=== PATIENT | male | born 1950 | race Caucasian/White ===

== ENCOUNTER 2017-08-28 11:45 | Inpatient (IN) | payer OTHER ==
[~2017-08-28] VITALS: Ht 185.4 cm; Wt 131.9 kg
[~2017-08-28 11:45] MED LIST: FLEXERIL10 MG PO; MEDROL DOSEPAK4 MG PO; MOBIC7.5 MG PO; NORCO 5/3251 TABLET PO; VALIUM5 MG PO
[2017-08-28 12:55] LABS: HEMATOCRIT 38.4 % (38.0-50.0); HEMOGLOBIN 13.5 G/DL (12.5-16.6); MCH 31.5 PG (29.0-34.0); MCHC 35.2 G/DL (30.0-36.0); MCV 89.5 FL (86-99); PLATELET COUNT 109 K/uL (156-360); RBC DIS.WIDTH-CV 13.7 % (11.8-14.6); RBC DIS.WIDTH-SD 45.2 % (39-53); RED BLOOD COUNT 4.29 M/uL (4.00-5.50); WHITE BLOOD COUNT 9.5 K/uL (4.1-10.2)
[2017-08-28 13:01] LABS: CHLORIDE 96 mEq/L (99-109); SODIUM 130 mEq/L (136-147)
[2017-08-28 13:02] LABS: GLUCOSE 282 mg/dL (70-99)
[2017-08-28 13:06] LABS: CREATININE 1.7 mg/dL (0.6-1.3); GFR ESTIMATE (CALCULATED) 43 mL/min/ (58.99-99999)
[2017-08-28 13:07] LABS: UREA NITROGEN (BUN) 34 mg/dL (9-23)
[2017-08-28 13:12] LABS: TROP-I INTERPRETATION NEGATIVE; TROPONIN-I < 0.01 ng/mL (0.0-0.30)
[2017-08-28 13:28] LABS: CARBON DIOXIDE (BICARBONATE) 18.9 MEQ/L (20-31)
[2017-08-28 13:31] LABS: ABS NEUTROPHIL COUNT 8.1; BAND NEUTROPHILS 29.6 % (0-8.0); EOSINOPHIL ABS CT 0; METAMYELOCYTES 5.2 %; MONOCYTES 2.6 % (0-9.0); PLAT.SUFFICIENCY DECREASED; SEG.NEUTROPHILS 55.6 % (46.0-76.0)
[2017-08-28 16:00] VITALS: BP 118/63
[2017-08-28 17:46] LABS: APPEARANCE SL.HAZY ((CLEAR)); BILIRUBIN NEGATIVE; BLOOD NEGATIVE; COLOR AMBER ((YELLOW)); GLUCOSE (STRIP) NEGATIVE; KETONES NEGATIVE; LEUKOCYTES NEGATIVE; NITRITE NEGATIVE; PROTEIN (STRIP) 30; SPECIFIC GRAVITY 1.018 (1.000-1.030); UROBILINOGEN 0.2 MG/DL (0.2-1.0)
[2017-08-28 17:55] LABS: BACTERIA RARE /HPF; EPITHELIAL CELLS RARE /HPF; HYALINE CASTS 20-30 /LPF; MUCUS TRACE /LPF; RED BLOOD CELLS 0-5 /HPF (0-5); UCUL ADDED? NO; WHITE BLOOD CELLS 0-5 /HPF (0-5)
[2017-08-28 20:02] VITALS: BP 123/68
[2017-08-28 22:03] LABS: TROP-I INTERPRETATION NEGATIVE; TROPONIN-I 0.01 ng/mL (0.0-0.30)
[2017-08-28 23:52] VITALS: BP 05/58; BP 105/58
[2017-08-29 04:47] VITALS: BP 123/61
[2017-08-29 06:18] LABS: ALBUMIN 2.8 G/DL (3.2-4.8); ALKALINE PHOSPHATASE 38 IU/L (3-129); ALT (GPT) 27 IU/L (3-49); AST (GOT) 22 IU/L (2-34); CHLORIDE 104 MEQ/L (99-109); DIRECT BILIRUBIN 0.8 mg/dL (0.0-0.3); GLUCOSE 156 mg/dL (70-99); POTASSIUM 4.1 MEQ/L (3.7-5.4); SODIUM 134 MEQ/L (136-147); TOTAL PROTEIN 5.9 G/DL (6.4-8.3); UREA NITROGEN (BUN) 34 mg/dL (9-23)
[2017-08-29 06:21] LABS: CREATININE 1.2 MG/DL (0.6-1.3); GFR ESTIMATE (CALCULATED) > 59 mL/min/ (58.99-99999)
[2017-08-29 06:30] LABS: ATYPICAL LYMPHOCYTE 1.7 %; BAND NEUTROPHILS 17.5 % (0-8.0); BASOPHILS 0.9 %; BURR CELLS 1+; EOSINOPHIL ABS CT 0; HEMATOCRIT 33.6 % (38.0-50.0); LYMPHOCYTES 7.9 % (15.0-45.0); MCH 29.9 PG (29.0-34.0); MCHC 32.4 G/DL (30.0-36.0); MCV 92.3 FL (86-99); METAMYELOCYTES 1.8 %; NUCLEATED RBC'S 0.9; PLAT.SUFFICIENCY DECREASED; POIKILOCYTOSIS 1+; RBC DIS.WIDTH-CV 13.8 % (11.8-14.6); RBC DIS.WIDTH-SD 47.5 % (39-53); RED BLOOD COUNT 3.64 M/uL (4.00-5.50); SEG.NEUTROPHILS 70.2 % (46.0-76.0); SMUDGE CELLS 5.3; WHITE BLOOD COUNT 3.4 K/uL (4.1-10.2)
[2017-08-29 06:44] LABS: HEMOGLOBIN 10.9 G/DL (12.5-16.6); PLATELET COUNT 65 K/uL (156-360)
[2017-08-29 08:00] VITALS: BP 136/68
[2017-08-29 11:11] VITALS: BP 131/65
[2017-08-29 16:00] VITALS: BP 113/56
[2017-08-29 19:26] VITALS: BP 150/74
[2017-08-29 23:39] VITALS: BP 125/66
[2017-08-30 03:34] VITALS: BP 131/72
[2017-08-30 06:04] LABS: INTER. NORMALIZED RATIO 1.4
[2017-08-30 06:10] LABS: HEMATOCRIT 33.6 % (38.0-50.0); HEMOGLOBIN 10.9 G/DL (12.5-16.6); MCH 29.8 PG (29.0-34.0); MCHC 32.4 G/DL (30.0-36.0); MCV 91.8 FL (86-99); PLATELET COUNT 83 K/uL (156-360); RBC DIS.WIDTH-CV 13.9 % (11.8-14.6); RBC DIS.WIDTH-SD 47.8 % (39-53); RED BLOOD COUNT 3.66 M/uL (4.00-5.50); WHITE BLOOD COUNT 3.7 K/uL (4.1-10.2)
[2017-08-30 06:34] LABS: ALBUMIN 2.5 G/DL (3.2-4.8); ALKALINE PHOSPHATASE 40 IU/L (3-129); ALT (GPT) 22 IU/L (3-49); AST (GOT) 21 IU/L (2-34); CHLORIDE 105 MEQ/L (99-109); CREATININE 0.9 MG/DL (0.6-1.3); GFR ESTIMATE (CALCULATED) > 59 mL/min/ (58.99-99999); GLUCOSE 119 mg/dL (70-99); POTASSIUM 3.4 MEQ/L (3.7-5.4); SODIUM 136 MEQ/L (136-147); TOTAL PROTEIN 5.6 G/DL (6.4-8.3); UREA NITROGEN (BUN) 18 mg/dL (9-23)
[2017-08-30 07:33] VITALS: BP 142/82
[2017-08-30 11:30] VITALS: BP 126/72
[2017-08-30 15:01] VITALS: BP 134/73
[2017-08-30 19:53] VITALS: BP 132/72
[2017-08-31 00:21] VITALS: BP 149/71
[2017-08-31 04:30] VITALS: BP 162/77
[2017-08-31 04:44] LABS: HEMATOCRIT 34.2 % (38.0-50.0); HEMOGLOBIN 11.2 G/DL (12.5-16.6); MCHC 32.7 G/DL (30.0-36.0); MCV 91.7 FL (86-99); PLATELET COUNT 99 K/uL (156-360); RBC DIS.WIDTH-SD 47.2 % (39-53); RED BLOOD COUNT 3.73 M/uL (4.00-5.50); WHITE BLOOD COUNT 3.8 K/uL (4.1-10.2)
[2017-08-31 05:09] LABS: ABS NEUTROPHIL COUNT 2.5; ATYPICAL LYMPHOCYTE 0.9 %; BAND NEUTROPHILS 0.9 % (0-8.0); BURR CELLS 1+; EOSINOPHIL ABS CT 0; EOSINOPHILS 0.9 % (0-5.0); LYMPHOCYTES 21.9 % (15.0-45.0); PLAT.SUFFICIENCY ADEQUATE
[2017-08-31 05:10] LABS: MONOCYTES 11.4 % (0-9.0)
[2017-08-31 05:31] LABS: ALBUMIN 2.5 G/DL (3.2-4.8); ALKALINE PHOSPHATASE 43 IU/L (3-129); ALT (GPT) 20 IU/L (3-49); AST (GOT) 21 IU/L (2-34); CHLORIDE 105 MEQ/L (99-109); CREATININE 0.7 MG/DL (0.6-1.3); GFR ESTIMATE (CALCULATED) > 59 mL/min/ (58.99-99999); GLUCOSE 151 mg/dL (70-99); POTASSIUM 3.3 MEQ/L (3.7-5.4); SODIUM 136 MEQ/L (136-147); TOTAL PROTEIN 5.7 G/DL (6.4-8.3); UREA NITROGEN (BUN) 15 mg/dL (9-23)
[2017-08-31 05:32] LABS: TOTAL BILIRUBIN 0.6 MG/DL (0.0-1.0)
[2017-08-31 07:37] VITALS: BP 137/72
[2017-08-31] MEDS ORDERED: CEFTIN500 MG PO (11:51)
[2017-08-31 13:14] VITALS: BP 140/82
== END 2017-08-31 13:19 | disposition home or self-care (01) | DRG 871 ==
LOC: EME 11:45 → 5SOUTH 13:32 → EDOF 13:32 → ENRESERV 13:35 → 5SOUTH 15:40
PROVIDERS: Family Medicine; Hospitalist; Internal Medicine; Nurse Practitioner Family
DX: A41.9 Sepsis, unspecified organism (principal); J96.01 Acute respiratory failure with hypoxia; J13 Pneumonia due to Streptococcus pneumoniae; R65.20 Severe sepsis without septic shock; N17.9 Acute kidney failure, unspecified; R04.2 Hemoptysis; E87.2 Acidosis; D69.6 Thrombocytopenia, unspecified; E87.1 Hypo-osmolality and hyponatremia; R17 Unspecified jaundice; E86.0 Dehydration; R73.9 Hyperglycemia, unspecified; K21.9 Gastro-esophageal reflux disease without esophagitis; M19.90 Unspecified osteoarthritis, unspecified site; E66.01 Morbid (severe) obesity due to excess calories; Z68.38 Body mass index [BMI] 38.0-38.9, adult; Z87.891 Personal history of nicotine dependence; Z88.0 Allergy status to penicillin
CPT/HCPCS: 71046; 80048; 80053; 80076; 81003; 82803; 83036; 83605; 83880; 84145 90; 84484; 85025; 85027; 85610; 85730; 87040; 87070; 87077; 87181; 87205; 87449; 87641; 93005; 94640; 94640 76; 99202; 99281; 99285; J0696; J1650; J1885; J1956; J2405; J7030; J7040

== ENCOUNTER 2017-09-14 11:05 | Emergency (ER) | payer OTHER ==
[~2017-09-14] VITALS: Ht 182.9 cm; Wt 124.4 kg
[~2017-09-14 11:05] MED LIST changes: +CEFTIN500 MG PO
[2017-09-14 13:00] VITALS: BP 145/93
== END 2017-09-14 13:00 | disposition home or self-care (01) ==
LOC: EME 11:05
PROC: 0HQ1XZZ Repair Face Skin, External Approach (ICD-10-PCS; principal; 2017-09-14)
DX: S01.81XA Laceration without foreign body of other part of head, initial encounter (principal); S00.33XA Contusion of nose, initial encounter; M54.2 Cervicalgia; W18.30XA Fall on same level, unspecified, initial encounter; Y92.480 Sidewalk as the place of occurrence of the external cause; Z88.0 Allergy status to penicillin; Z87.891 Personal history of nicotine dependence
CPT/HCPCS: 70160; 70450; 72125; 99281; 99285